=== PATIENT | female | born 1965 | race Caucasian/White ===

== ENCOUNTER 2022-06-18 08:53 | Emergency (ER) | payer MEDICARE, OTHER ==
[~2022-06-18] VITALS: Ht 170.2 cm; Wt 89.8 kg
--- NOTE | 2022-06-18 08:55 | NUR ---
REceived pt 56 yrs female came from home s/p ta 2 days ago c/o genralized body pain and dizzness with headach awake and alert no weeknees no n/v
--- NOTE | 2022-06-18 09:00 | NUR ---
seen by dr. major
--- NOTE | 2022-06-18 09:25 | NUR ---
TO CT SCAN VIA GARCIA
[2022-06-18] MEDS ORDERED: KETOROLAC TROMETHAMINE INJ 30 MG/ML VIAL ONE (09:27)
[2022-06-18] MEDS ORDERED: CYCLOBENZAPRINE 10 MG TABLET ONE (09:27)
[2022-06-18] MEDS: CYCLOBENZAPRINE 10 MG TABLET PO ONE (09:36)
[2022-06-18] MEDS: KETOROLAC TROMETHAMINE INJ 30 MG/ML VIAL IM ONE (09:38)
--- NOTE | 2022-06-18 10:30 | NUR ---
RESTING AT THIS DINESES ANY PAIN
[2022-06-18] MEDS ORDERED: CYCL5TAB PO (10:53)
[2022-06-18] MEDS ORDERED: KETO10TA2 PO (10:53)
--- NOTE | 2022-06-18 10:59 | NUR ---
WAting for ct result RESTING AND COMFRTABLE AT THIS TIME
--- NOTE | 2022-06-18 11:22 | NUR ---
Patient discharged to home in stable condition. Written and verbal after care instructions given. Patient verbalizes understanding of instruction.
[2022-06-18 11:29] VITALS: BP 127/80
== END 2022-06-18 11:30 | disposition home or self-care (01) ==
LOC: ER 08:57
DX: S13.4XXA Sprain of ligaments of cervical spine, initial encounter (principal); V49.60XA Unspecified car occupant injured in collision with unspecified motor vehicles in traffic accident, initial encounter; Y93.89 Activity, other specified; Y92.89 Other specified places as the place of occurrence of the external cause; Y99.8 Other external cause status
CPT/HCPCS: 99285; 72125; 96372; 70450; J1885

== ENCOUNTER 2024-12-16 11:21 | Outpatient (CLI) | payer MEDICARE, OTHER ==
[~2024-12-16 11:21] MED LIST: CYCL5TAB PO; KETO10TA2 PO
== END 2024-12-16 23:59 | disposition home or self-care (01) ==
LOC: RAD 11:21
PROVIDERS: ATTEND Internal Medicine Interventional Cardiology
DX: R06.02 Shortness of breath (principal); M47.814 Spondylosis without myelopathy or radiculopathy, thoracic region
CPT/HCPCS: 71046

== ENCOUNTER 2024-12-22 08:16 | Inpatient (IN) | payer MEDICARE, OTHER ==
[~2024-12-22] VITALS: Ht 170.2 cm; Wt 83.3 kg
[2024-12-22] MEDS ORDERED: SUGAMMADEX SODIUM 200 MG/2 ML VIAL IV ONE (10:38)
[2024-12-22] MEDS ORDERED: OXYMETAZOLINE HCL NASAL SPRAY 30 ML BOTTLE NS ONE (10:39)
[2024-12-22] MEDS ORDERED: ROCURONIUM BROMIDE 50 MG/5 ML ONE (10:39)
[2024-12-22] MEDS ORDERED: FENTANYL PF 100MCG/2ML AMPUL ONE ×2 (10:39→13:04)
[2024-12-22] MEDS ORDERED: MIDAZOLAM HCL 2 MG/2ML VIAL ONE (10:39)
[2024-12-22] MEDS ORDERED: VANCOMYCIN 1 GM VIAL ONE (10:48)
[2024-12-22] MEDS ORDERED: dexaMETHasone SOD PHOSPHATE 1 ML ONE (10:48)
[2024-12-22] MEDS ORDERED: LIDOCAINE 2%-EPI 1:100,000 30 ML VIAL ONE (10:48)
[2024-12-22] MEDS ORDERED: ACETAMINOPHEN 325 MG TABLET PO PRN ×2 (14:00→15:00)
[2024-12-22] MEDS ORDERED: ONDANSETRON HCL/PF 4 MG/2 ML VIAL IV PRN (14:00)
[2024-12-22] MEDS ORDERED: Z GUARD REMEDY 4 OZ OINT TP PRN (15:00)
[2024-12-22] MEDS ORDERED: ZOLPIDEM TARTRATE 5 MG TABLET PO PRN (15:00)
[2024-12-22] MEDS ORDERED: MAGNESIUM HYDROXIDE 30 ML UDC PO PRN (15:00)
[2024-12-22] MEDS ORDERED: ONDANSETRON HCL/PF 4 MG/2 ML VIAL IVP PRN (15:00)
[2024-12-22] MEDS: IV NS 0.9% 1,000 ML IV PRN (15:13)
[2024-12-22] MEDS ORDERED: DAPA10TA PO (15:49)
[2024-12-22] MEDS ORDERED: INSU100I24 SQ (15:49)
[2024-12-22] MEDS ORDERED: SITA1TAB6 PO (15:49)
[2024-12-22 16:00] VITALS: BP 110/61; TEMP 97.3; O2SAT 97
[2024-12-22] MEDS: CYCLOBENZAPRINE 10 MG TABLET PO SCH (16:21)
[2024-12-22] MEDS ORDERED: DEXTROSE 50%-WATER 50 ML DISP.SYRIN IV PRN (16:30)
[2024-12-22] MEDS: BLOOD SUGAR DIAGNOSTIC 1 EACH STRIP IN SCH (17:24)
[2024-12-22] MEDS: INSULIN REGULAR, HUMAN 100 UNIT/ML 3 ML VIAL SQ PRN (18:44)
[2024-12-22 20:00] VITALS: BP 95/57; TEMP 98; O2SAT 99
[2024-12-22] MEDS: INSULIN GLARGINE, 100 UNIT/ML CARTRIDGE SQ SCH (21:39)
[2024-12-22] MEDS: VANCOMYCIN 1 GM in IV D5W 250ml IV SCH (22:47)
[2024-12-23] MEDS: HYDROMORPHONE 1 MG/1 ML DISP.SYRIN IV PRN (00:14)
[2024-12-23 06:30] LABS: PLATELET COUNT (AUTO) 320 K/uL (150-450); RED BLOOD CELL COUNT(AUTO) 4.83 MIL/uL (4.0-5.2); RED CELL DISTRIBUTION WIDTH 14.2 % (11.5-15.0); WHITE BLOOD COUNT (AUTO) 11.3 K/uL (4.3-11.0)
[2024-12-23 06:32] LABS: CALCIUM, SERUM 9.0 mg/dL (8.5-10.1); CREATININE 0.8 mg/dL (0.6-1.3); PHOSPHORUS 3.0 mg/dL (2.5-4.9); SODIUM SERUM 140.0 mmol/L (136-145); UREA NITROGEN, BLOOD 17.0 mg/dL (7-18)
[2024-12-23] MEDS: METFORMIN 500 MG TABLET PO SCH (09:46)
[2024-12-23] MEDS: LINAGLIPTIN 5 MG TABLET PO SCH (09:46)
[2024-12-23] MEDS: DAPAGLIFLOZIN PROPANEDIOL 10 MG TABLET PO SCH (09:46)
== END 2024-12-23 11:30 | disposition home or self-care (01) | DRG 908 ==
LOC: DS 08:16 → MED 13:23
PROVIDERS: ADMIT Student in an Organized Health Care Education/Training Program; ATTEND Student in an Organized Health Care Education/Training Program
PROC: 0NSR04Z Reposition Maxilla with Internal Fixation Device, Open Approach (ICD-10-PCS; 2024-12-22)
PROC: 0NUV07Z Supplement Left Mandible with Autologous Tissue Substitute, Open Approach (ICD-10-PCS; 2024-12-22)
PROC: 0NUR07Z Supplement Maxilla with Autologous Tissue Substitute, Open Approach (ICD-10-PCS; 2024-12-22)
PROC: 0NPW04Z Removal of Internal Fixation Device from Facial Bone, Open Approach (ICD-10-PCS; 2024-12-22)
PROC: 0NBV0ZZ Excision of Left Mandible, Open Approach (ICD-10-PCS; 2024-12-22)
PROC: 0NBT0ZZ Excision of Right Mandible, Open Approach (ICD-10-PCS; 2024-12-22)
PROC: 0NPW07Z Removal of Autologous Tissue Substitute from Facial Bone, Open Approach (ICD-10-PCS; 2024-12-22)
PROC: 0NSV04Z Reposition Left Mandible with Internal Fixation Device, Open Approach (ICD-10-PCS; principal; 2024-12-22 10:25)
DX: T86.831 Bone graft failure (principal); S02.40CA Maxillary fracture, right side, initial encounter for closed fracture; S02.40DA Maxillary fracture, left side, initial encounter for closed fracture; E11.9 Type 2 diabetes mellitus without complications; I10 Essential (primary) hypertension; S02.609K Fracture of mandible, unspecified, subsequent encounter for fracture with nonunion; D16.5 Benign neoplasm of lower jaw bone; M27.2 Inflammatory conditions of jaws; Z79.899 Other long term (current) drug therapy; Y83.8 Other surgical procedures as the cause of abnormal reaction of the patient, or of later complication, without mention of misadventure at the time of the procedure; Y92.009 Unspecified place in unspecified non-institutional (private) residence as the place of occurrence of the external cause; X58.XXXD Exposure to other specified factors, subsequent encounter; X58.XXXA Exposure to other specified factors, initial encounter; Y92.9 Unspecified place or not applicable
CPT/HCPCS: 36415; 80048-TC; 82962-TC; 83735-TC; 84100-TC; 85025-TC; 88300-TC; 88305-TC; 88311-TC; 88314-TC; A4217; A4223; A4338; C1713; G0378; J1100; J1171; J1815; J1885; J2250; J2405; J2704; J3010; J3373; J3490; J7030; J7060